=== PATIENT | female | born 1955 | race Caucasian/White ===

== ENCOUNTER 2023-09-11 06:04 | Outpatient (REF) | payer MEDICARE, SELFPAY ==
[2023-09-11 07:00] LABS: Alanine Aminotransferase 44 U/L (0-31); Albumin Level 2.7 g/dL (3.5-5.0); Alkaline Phosphatase 954 U/L (39-117); Anion Gap 15 (12-20); Aspartate Amino Transferase 77 U/L (5-31); Blood Urea Nitrogen 14 mg/dL (9-16); Calcium 8.2 mg/dL (8.4-10.2); Carbon Dioxide 28 mmol/L (22-29); Chloride 99 mmol/L (96-108); Estimated Glomerular Filt Rate > 60; Glucose Random 71 mg/dL (60-115); Hemoglobin 8.7 g/dl (12.0-16.0); Mean Corpuscular HGB Conc 32.2 g/dl (31.0-35.0); Mean Corpuscular Hemoglobin 29.5 pg (27.0-33.0); Mean Corpuscular Volume 91.5 fL (80.0-98.0); Mean Platelet Volume 11.2 fL (9.4-12.3); Platelet Count 493 X10*3/uL (160-400); Potassium 3.3 mmol/L (3.3-5.1); Red Blood Count 2.95 X10*6/uL (4.20-5.50); Red Cell Distribution Width 16.7 % (11.0-16.0); Sodium 139 mmol/L (135-145); Total Protein 5.9 g/dL (6.5-8.0)
[2023-09-11 07:01] LABS: WBC ABN SCTR FOR CBC 1
[2023-09-11 07:42] LABS: Band Neutrophils Percent 1 % (3-5); Lymphocytes Percent Manual 6 % (20-40); Neutrophils Percent Manual 93 % (45-73)
[2023-09-11 07:45] LABS: Hypochromasia 1+ (5-14) /OIF; Large Platelet PRESENT; Microcytosis 1+ (5-14) /OIF; Platelet Estimate INCREASED (NORMAL); Platelet Morphology Comment NOTED; RBC Morphology NOTED
[2023-09-11 07:46] LABS: Dohle Bodies PRESENT; Toxic Vacuolation PRESENT
[2023-09-11 08:17] LABS: Lymphocytes Absolute Manual 1.7 X10*3/uL (1.2-4.9); Neutrophils Absolute Manual 26.6 X10*3/uL (2.0-8.3); White Blood Count 28.3 X10*3/uL (4.8-10.8)
== END 2023-09-11 06:05 | disposition home or self-care (01) ==
LOC: HO.MMNH1L 06:04
PROVIDERS: Visit Provider Hospitalist
DX: C80.1 Malignant (primary) neoplasm, unspecified (principal)
CPT/HCPCS: 36415; 80053; 85007; 85025; 85027

== ENCOUNTER 2023-09-14 06:10 | Outpatient (REF) | payer MEDICARE, SELFPAY ==
[2023-09-14 06:25] LABS: Hematocrit 25.6 % (37.0-47.0); Hemoglobin 8.4 g/dl (12.0-16.0); Mean Corpuscular HGB Conc 32.8 g/dl (31.0-35.0); Mean Corpuscular Hemoglobin 29.5 pg (27.0-33.0); Mean Corpuscular Volume 89.8 fL (80.0-98.0); Mean Platelet Volume 11.3 fL (9.4-12.3); Platelet Count 265 X10*3/uL (160-400); Red Blood Count 2.85 X10*6/uL (4.20-5.50); Red Cell Distribution Width 16.2 % (11.0-16.0)
[2023-09-14 06:34] LABS: WBC ABN SCTR FOR CBC 1; White Blood Count 8.1 X10*3/uL (4.8-10.8)
[2023-09-14 06:44] LABS: Alanine Aminotransferase 56 U/L (0-31); Alkaline Phosphatase 926 U/L (39-117); Anion Gap 14 (12-20); Aspartate Amino Transferase 85 U/L (5-31); Bilirubin Total 0.8 mg/dL (0.0-1.0); Blood Urea Nitrogen 25 mg/dL (9-16); Calcium 8.4 mg/dL (8.4-10.2); Carbon Dioxide 28 mmol/L (22-29); Chloride 102 mmol/L (96-108); Estimated Glomerular Filt Rate > 60; Glucose Random 94 mg/dL (60-115); Potassium 3.7 mmol/L (3.3-5.1); Sodium 140 mmol/L (135-145); Total Protein 6.3 g/dL (6.5-8.0)
[2023-09-14 06:48] LABS: Band Neutrophils Percent 8 % (3-5); Basophils Abs Manual 0.1 X10*3/uL (0.0-0.2); Basophils Percent Manual 1 % (0-2); Lymphocytes Absolute Manual 3.1 X10*3/uL (1.2-4.9); Lymphocytes Percent Manual 38 % (20-40); Monocytes Absolute Manual 0.6 X10*3/uL (0.1-1.2); Monocytes Percent Manual 7 % (2-11); Neutrophils Absolute Manual 4.4 X10*3/uL (2.0-8.3); Neutrophils Percent Manual 46 % (45-73); RBC Morphology NOTED
[2023-09-14 06:50] LABS: Dohle Bodies PRESENT; Platelet Estimate NORMAL (NORMAL); Platelet Morphology Comment NORMAL; Toxic Granulation PRESENT; Toxic Vacuolation PRESENT
== END 2023-09-14 06:11 | disposition home or self-care (01) ==
LOC: HO.MMNH1L 06:10
PROVIDERS: Visit Provider Hospitalist
DX: C34.90 Malignant neoplasm of unspecified part of unspecified bronchus or lung (principal); E43 Unspecified severe protein-calorie malnutrition; Z87.891 Personal history of nicotine dependence
CPT/HCPCS: 36415; 80053; 85007; 85027

== ENCOUNTER 2023-09-15 13:24 | Outpatient (REF) | payer MEDICARE, SELFPAY ==
[2023-09-15 14:20] LABS: Appearance Urine Clear; Color Urine Yellow; Glucose Urine UA Negative (Negative); Leukocyte Esterase Urine Trace (Negative); Nitrite Urine Negative (Negative); PH 6.5 (5.0-9.0); UMIC TRIGGER UA YES; Urine Blood Negative (Negative); Urine Ketones Negative (Negative); Urine Protein 30 (1+) mg/dL (Neg-Trace)
[2023-09-15 14:24] LABS: Bacteria Urine None Seen (None Seen); Hyaline Casts Urine 0-2 /LPF (0-2); RBC Urine 0-2 /HPF (0-2); WBC Urine 0-5 /HPF (0-5)
== END 2023-09-15 13:25 | disposition home or self-care (01) ==
LOC: HO.MMNH1L 13:24
PROVIDERS: Visit Provider Hospitalist
DX: E43 Unspecified severe protein-calorie malnutrition (principal); C34.90 Malignant neoplasm of unspecified part of unspecified bronchus or lung; Z87.891 Personal history of nicotine dependence
CPT/HCPCS: 81001; 81003; 87086

== ENCOUNTER 2023-09-18 05:57 | Outpatient (REF) | payer MEDICARE, SELFPAY ==
[2023-09-18 06:03] LABS: Hemoglobin 8.2 g/dl (12.0-16.0); Mean Corpuscular HGB Conc 34.2 g/dl (31.0-35.0); Mean Corpuscular Hemoglobin 30.1 pg (27.0-33.0); Mean Corpuscular Volume 88.2 fL (80.0-98.0); Mean Platelet Volume 11.9 fL (9.4-12.3); Platelet Count 101 X10*3/uL (160-400); Red Blood Count 2.72 X10*6/uL (4.20-5.50); Red Cell Distribution Width 15.9 % (11.0-16.0); White Blood Count 8.3 X10*3/uL (4.8-10.8)
[2023-09-18 06:36] LABS: Anion Gap 16 (12-20); Blood Urea Nitrogen 27 mg/dL (9-16); Calcium 8.6 mg/dL (8.4-10.2); Carbon Dioxide 26 mmol/L (22-29); Chloride 101 mmol/L (96-108); Estimated Glomerular Filt Rate > 60; Glucose Random 95 mg/dL (60-115); Sodium 140 mmol/L (135-145)
[2023-09-18 07:05] LABS: Potassium 2.9 mmol/L (3.3-5.1)
[2023-09-18 07:45] LABS: Band Neutrophils Percent 6 % (3-5); Lymphocytes Absolute Manual 3.3 X10*3/uL (1.2-4.9); Lymphocytes Percent Manual 40 % (20-40); Metamyelocytes Absolute 0.4 X10*3/uL; Metamyelocytes Percent 5 %; Monocytes Absolute Manual 0.1 X10*3/uL (0.1-1.2); Monocytes Percent Manual 1 % (2-11); Neutrophils Absolute Manual 4.4 X10*3/uL (2.0-8.3); Neutrophils Percent Manual 47 % (45-73); Promyelocytes Absolute 0.1 X10*3/uL; Promyelocytes Percent 1 %
[2023-09-18 07:47] LABS: Platelet Estimate DECREASED (NORMAL); Platelet Morphology Comment NORMAL; RBC Morphology NORMAL; Toxic Granulation PRESENT
== END 2023-09-18 05:58 | disposition home or self-care (01) ==
LOC: HO.MMNH1L 05:57
PROVIDERS: Visit Provider Hospitalist
DX: C80.1 Malignant (primary) neoplasm, unspecified (principal)
CPT/HCPCS: 36415; 80048; 85007; 85025; 85027

== ENCOUNTER 2023-09-19 05:44 | Outpatient (REF) | payer MEDICARE, SELFPAY ==
[2023-09-19 06:08] LABS: Potassium 4.6 mmol/L (3.3-5.1)
== END 2023-09-19 05:45 | disposition home or self-care (01) ==
LOC: HO.MMNH1L 05:44
PROVIDERS: Visit Provider Hospitalist
DX: C34.90 Malignant neoplasm of unspecified part of unspecified bronchus or lung (principal); E46 Unspecified protein-calorie malnutrition
CPT/HCPCS: 36415; 84132

== ENCOUNTER 2023-09-25 06:14 | Outpatient (REF) | payer MEDICARE, SELFPAY | END 2023-09-25 06:15 | disposition home or self-care (01) | LOC: HO.MMNH1L 06:14 | PROVIDERS: Visit Provider Hospitalist | DX: Z13.89 Encounter for screening for other disorder (principal) ==